=== PATIENT | female | born 1965 | race Caucasian/White ===

== ENCOUNTER 2020-10-07 21:14 | Emergency (ER) | payer MEDICAID ==
[~2020-10-07] VITALS: Ht 154.9 cm; Wt 54.4 kg
[2020-10-07 21:25] VITALS: BP 119/71
[2020-10-07 21:57] LABS: BASOPHILS % (AUTO) 0.3 % (0.0-2.0); EOSINOPHILS # (AUTO) 0.2 K/uL (0-0.4); EOSINOPHILS % (AUTO) 2.2 % (0.0-4.0); HEMATOCRIT 37.8 % (36-48); HEMOGLOBIN 12.5 g/dL (12.0-16.0); LYMPHOCYTES # (AUTO) 1.3 K/uL (2.5-16.5); MEAN CORPUSCULAR HEMOGLOBIN 29 pg (27-31); MEAN CORPUSCULAR HGB CONC 33 g/dL (33-37); MEAN CORPUSCULAR VOLUME 88.6 fL (80-94); MONOCYTES # (AUTO) 0.5 K/uL (0.8-1.0); MONOCYTES % (AUTO) 7.4 % (1.7-9.3); NEUTROPHILS % (AUTO) 72.1 % (42.2-75.2); PLATELET COUNT (AUTO) 203 K/uL (140-450); RED BLOOD CELL COUNT(AUTO) 4.26 MIL/uL (4.20-5.40); RED CELL DISTRIBUTION WIDTH 12.7 % (11.6-13.7)
--- NOTE | 2020-10-07 22:05 | NUR ---
AMBULATED TO BED 12 FROM [facility]
[2020-10-07 22:09] LABS: ANION GAP 12.8 (8-16); CARBON DIOXIDE 28.1 mmol/L (21-32); CREATININE 0.7 mg/dL (0.6-1.3); POTASSIUM 3.9 mmol/L (3.5-5.1)
--- NOTE | 2020-10-07 22:10 | NUR ---
PT BIB SELF FOR C/O 10/10 EPIGASTRIC PAIN X 7 MONTHS. PT REPORTS THE PAIN IS SHARP AND INTERMITTENT. PT REPORTS SHE WAS SEEN AT A CLINIC X 1 MONTH AGO, WHO DIAGNOSED HER WITH A "STOMACH INFECTION." SHE WAS GIVEN ABX IN WHICH SHE COMPLETED, AND SHE IS STILL TAKING RX OMEPRAZOLE BID. PT REPORTS TAKING TYLENOL WITH MILD RELIEF. LAST BM REPORTED TODAY, NORMAL CONSISTENCY. PT ABLE TO EAT AND DRINK WITHOUT DIFFICULTY. DENIES N/V/D, FEVER, CHILLS, CP, SOB. SEE COMPLETE ASSESSMENT FOR FURTHER DETAILS. MED HX: HTN ALLERGIES: NKA
[2020-10-07 22:15] LABS: ALBUMIN 3.7 g/dL (3.4-5.0); TOTAL BILIRUBIN 0.4 mg/dL (0.0-1.0)
--- NOTE | 2020-10-07 22:19 | NUR ---
Gordo fraire in [facility] - 10/07/20 at 2258 by [email or web address] ERMD AT BEDSIDE.
--- NOTE | 2020-10-07 23:30 | NUR ---
ULTRASOUND AT BEDSIDE.
--- NOTE | 2020-10-07 23:43 | NUR ---
IMTIAZ RAY AT BEDSIDE.
[2020-10-08] MEDS ORDERED: MORPHINE SULFATE 2 MG/ML SYR IVP ONE (00:05)
[2020-10-08] MEDS ORDERED: PANTOPRAZOLE 40 MG INJ VIAL IVP ONE (00:05)
[2020-10-08] MEDS ORDERED: ONDANSETRON 4 MG/2 ML VIAL IVP ONE (00:05)
[2020-10-08] MEDS ORDERED: NACL 0.9% 1,000 ML IV ONE (00:05)
[2020-10-08] MEDS ORDERED: ACETAMINOPHEN EXTRA STRENGTH 500 MG TAB PO ONE (00:20)
[2020-10-08] MEDS ORDERED: PANT40EC PO (01:14)
--- NOTE | 2020-10-08 01:52 | NUR ---
URINE SAMPLE TAKEN TO LAB AND GIVEN TO NICOLE ESPINOSA TECH.
[2020-10-08 01:56] LABS: BILIRUBIN,URINE NEGATIVE (NEGATIVE); BLOOD, URINE NEGATIVE (NEGATIVE); LEUKOCYTE ESTERASE ,URINE 2+ (NEGATIVE); NITRITE, URINE NEGATIVE (NEGATIVE); PH,URINE 6.5 (5.0-9.0); UGLUCOSE NEGATIVE (NEGATIVE)
[2020-10-08 02:00] LABS: APPEARANCE,URINE SLIGHTLY CLOUDY (CLEAR); COLOR,URINE YELLOW (YELLOW)
[2020-10-08 02:14] LABS: RBC,URINE 0-5 /HPF (0-5); YEAST,URINE Many /HPF (None Seen)
[2020-10-08 02:45] VITALS: BP 140/75
--- NOTE | 2020-10-08 02:45 | NUR ---
Patient discharged with v/s stable. Written and verbal after care instructions given and explained. Patient alert, oriented and verbalized understanding of instructions. Ambulatory with steady gait. All questions addressed prior to discharge. ID band removed. Patient advised to follow up with PMD. Rx of PROTONIX given. Patient educated on indication of medication including possible reaction and side effects. Opportunity to ask questions provided and answered.
[2020-10-08] MEDS ORDERED: CEPH500C16 PO (09:23)
== END 2020-10-08 02:45 | disposition home or self-care (01) ==
LOC: MED 21:14
DX: K80.80 Other cholelithiasis without obstruction (principal); N39.0 Urinary tract infection, site not specified; K27.9 Peptic ulcer, site unspecified, unspecified as acute or chronic, without hemorrhage or perforation; I10 Essential (primary) hypertension; Z79.899 Other long term (current) drug therapy
CPT/HCPCS: 36415; 74176; 76705; 80053; 81001; 83690; 84484; 85025; 87086; 93005; 96361; 96374; 96375; 99285; C9113; J2405; J7030; J2270

== ENCOUNTER 2021-01-22 21:59 | Emergency (ER) | payer MEDICAID ==
[~2021-01-22] VITALS: Ht 149.9 cm; Wt 53.5 kg
[~2021-01-22 21:59] MED LIST: CEPH500C16 PO; PANT40EC PO
[2021-01-22 22:04] VITALS: BP 158/88
--- NOTE | 2021-01-22 22:07 | NUR ---
TO LOBBY AMBULATORY
--- NOTE | 2021-01-22 22:22 | NUR ---
PT AMBULATED TO BED 09.
--- NOTE | 2021-01-22 22:30 | NUR ---
PT BIBS FOR C/C ELEVATED BP AT HOME. PT REPORTS THIS MORNING SHE FELT LIGHTHEADED, AND WHEN SHE CHECKED HER BP THIS EVENING, PT STATES SYSTOLIC 180'S. PT REPORTS HX OF HTN, HOWEVER SHE DID NOT TAKE HER MEDICATION YESTERDAY EVENING RX. PT REPORTS SHE TOOK HER BP MEDICATION THIS EVENING, BP CURRENTLY NOTED 147/86. PT DENIES LIGHTHEADEDNESS, SOB, CP OR PAIN CURRENTLY. DENIES BLURRED VISION. MED HX: HTN ALLERGIES: MORPHINE
--- NOTE | 2021-01-22 22:34 | NUR ---
PLACED IN GOWN AND CONNECTED TO [employer].
--- NOTE | 2021-01-22 23:01 | NUR ---
ERMD AT BEDSIDE FOR EVAL.
--- NOTE | 2021-01-22 23:11 | NUR ---
[place], AT BEDSIDE FOR EKG.
[2021-01-22 23:34] VITALS: BP 134/79
--- NOTE | 2021-01-22 23:34 | NUR ---
Patient discharged with v/s stable. Written and verbal after care instructions given and explained. Patient verbalized understanding. Ambulatory with steady gait. All questions addressed prior to discharge. Advised to follow up with PMD.
== END 2021-01-22 23:34 | disposition home or self-care (01) ==
LOC: MED 21:59
DX: I10 Essential (primary) hypertension (principal); R42 Dizziness and giddiness; Z88.5 Allergy status to narcotic agent; Z79.899 Other long term (current) drug therapy; Z90.710 Acquired absence of both cervix and uterus
CPT/HCPCS: 93005; 99283

== ENCOUNTER 2021-04-10 20:05 | Emergency (ER) | payer MEDICAID ==
[~2021-04-10] VITALS: Ht 139.7 cm; Wt 49.9 kg
[2021-04-10 20:15] VITALS: BP 142/92
--- NOTE | 2021-04-10 20:17 | NUR ---
to lobby a/w bed ambulatory
--- NOTE | 2021-04-10 22:44 | NUR ---
PT CALLED BY DR. LYNN IN LOBBY AND OUTSIDE WITH NO ANSWER.
--- NOTE | 2021-04-10 22:58 | NUR ---
PT CALLED BY DR. LYNN IN LOBBY AND OUTSIDE WITH NO ANSWER.
--- NOTE | 2021-04-10 23:05 | NUR ---
PT CALLED IN LOBBY AND OUTSIDE FOR 3RD TIME WITH NO ANSWER. ATTEMPTED TO CALL PT ON PERSONAL PHONE WITH NO ANSWER. PATIENT LEFT WITHOUT BEING SEEN BY DR. LYNN. NO FURTHER CARE PROVIDED FOR PATIENT.
== END 2021-04-10 23:05 | disposition left against medical advice (07) ==
LOC: MED 20:05
DX: R03.0 Elevated blood-pressure reading, without diagnosis of hypertension (principal); R42 Dizziness and giddiness; Z53.21 Procedure and treatment not carried out due to patient leaving prior to being seen by health care provider

== ENCOUNTER 2021-05-18 13:14 | Emergency (ER) | payer MEDICAID ==
--- NOTE | 2021-05-18 15:00 | NUR ---
ATTEMPTED TO TRIAGE PT, NO ANSWER IN LOBBY/TENT
--- NOTE | 2021-05-18 15:20 | NUR ---
2ND ATTEMPT TO TRIAGE PT, NO ANSWER IN LOBBY/TENT.
--- NOTE | 2021-05-18 15:22 | NUR ---
PATIENT LEFT WITHOUT BEING SEEN BY DR. LAMBERT. NO FURTHER CARE PROVIDED FOR PATIENT.
== END 2021-05-18 15:22 | disposition left against medical advice (07) ==
LOC: MED 13:14
DX: Z53.21 Procedure and treatment not carried out due to patient leaving prior to being seen by health care provider (principal)

== ENCOUNTER 2021-09-04 12:53 | Emergency (ER) | payer MEDICAID ==
[~2021-09-04] VITALS: Ht 152.4 cm; Wt 48.1 kg
[2021-09-04 12:58] VITALS: BP 128/99
--- NOTE | 2021-09-04 16:37 | NUR ---
Pt taken to bed 2 ambulatory with steady gait.
[2021-09-04 17:01] LABS: BASOPHILS % (AUTO) 0.2 % (0.0-2.0); EOSINOPHILS # (AUTO) 0.1 K/uL (0-0.4); EOSINOPHILS % (AUTO) 1.6 % (0.0-4.0); HEMATOCRIT 41.3 % (36-48); HEMOGLOBIN 13.8 g/dL (12.0-16.0); LYMPHOCYTES % (AUTO) 29.4 % (20.5-51.1); MEAN CORPUSCULAR HEMOGLOBIN 30 pg (27-31); MEAN CORPUSCULAR HGB CONC 33 g/dL (33-37); MEAN CORPUSCULAR VOLUME 88.9 fL (80-94); MONOCYTES # (AUTO) 0.5 K/uL (0.8-1.0); MONOCYTES % (AUTO) 6.9 % (1.7-9.3); NEUTROPHILS # (AUTO) 4.2 K/uL (1.8-7.7); NEUTROPHILS % (AUTO) 61.9 % (42.2-75.2); PLATELET COUNT (AUTO) 199 K/uL (140-450); RED BLOOD CELL COUNT(AUTO) 4.64 MIL/uL (4.20-5.40); RED CELL DISTRIBUTION WIDTH 13.1 % (11.6-13.7); WHITE BLOOD COUNT (AUTO) 6.8 K/uL (4.8-10.8)
[2021-09-04 17:23] LABS: ANION GAP 11.5 (8-16); CARBON DIOXIDE 30.2 mmol/L (21-32); CREATININE 0.6 mg/dL (0.6-1.3); POTASSIUM 3.7 mmol/L (3.5-5.1)
[2021-09-04 17:28] LABS: ALBUMIN 4.2 g/dL (3.4-5.0); MAGNESIUM 2.2 mg/dL (1.8-2.4); PHOSPHORUS 3.8 mg/dL (2.5-4.9); TOTAL BILIRUBIN 0.4 mg/dL (0.0-1.0)
[2021-09-04] MEDS ORDERED: ACET-2619 PO (17:53)
[2021-09-04 18:11] VITALS: BP 128/99
--- NOTE | 2021-09-04 18:11 | NUR ---
Patient discharged with v/s stable. Written and verbal after care instructions given and explained. Patient alert, oriented and verbalized understanding of instructions. Ambulatory with steady gait. All questions addressed prior to discharge. ID band removed. Patient advised to follow up with PMD. Rx of ACETAMINOPEHN given. Patient educated on indication of medication including possible reaction and side effects. Opportunity to ask questions provided and answered.
== END 2021-09-04 18:11 | disposition home or self-care (01) ==
LOC: MED 12:53
DX: S00.03XA Contusion of scalp, initial encounter (principal); R55 Syncope and collapse; I10 Essential (primary) hypertension; Z79.899 Other long term (current) drug therapy; Z79.2 Long term (current) use of antibiotics; Z88.5 Allergy status to narcotic agent; W01.198A Fall on same level from slipping, tripping and stumbling with subsequent striking against other object, initial encounter; Y92.009 Unspecified place in unspecified non-institutional (private) residence as the place of occurrence of the external cause; Y93.89 Activity, other specified; Y99.8 Other external cause status
CPT/HCPCS: 36415; 70450; 80053; 83690; 83735; 84100; 85025; 93005; 99285

== ENCOUNTER 2021-09-22 23:36 | Emergency (ER) | payer MEDICAID ==
[~2021-09-22 23:36] MED LIST changes: +ACET-2619 PO
--- NOTE | 2021-09-23 00:16 | NUR ---
CALLED TO TRIAGE, NO ANSWER
--- NOTE | 2021-09-23 00:46 | NUR ---
CALLED TO TRIAGE, NO ANSWER
== END 2021-09-23 00:48 | disposition left against medical advice (07) ==
LOC: MED 23:36
DX: M79.18 Myalgia, other site (principal); Z53.21 Procedure and treatment not carried out due to patient leaving prior to being seen by health care provider

== ENCOUNTER 2021-11-16 23:45 | Emergency (ER) | payer MEDICAID ==
[~2021-11-16] VITALS: Ht 147.3 cm; Wt 48.1 kg
[2021-11-17 00:24] VITALS: BP 175/99
--- NOTE | 2021-11-17 01:08 | NUR ---
PT AMBULATED TO BED #4
--- NOTE | 2021-11-17 01:32 | NUR ---
Dr. Cheung examining patient.
--- NOTE | 2021-11-17 01:45 | NUR ---
C/O HIGH BP X TODAY. NO OTHER COMPLAINTS PMHx: HTN (discontinue medication 10 days ago)
[2021-11-17 02:25] VITALS: BP 140/82
== END 2021-11-17 02:25 | disposition home or self-care (01) ==
LOC: MED 23:45
DX: I10 Essential (primary) hypertension (principal); Z88.5 Allergy status to narcotic agent
CPT/HCPCS: 99281

== ENCOUNTER 2022-09-18 21:19 | Emergency (ER) | payer MEDICAID ==
[~2022-09-18] VITALS: Ht 147.3 cm; Wt 50.3 kg
[2022-09-18 21:28] VITALS: BP 152/95
[2022-09-18 22:14] LABS: APPEARANCE,URINE CLEAR (CLEAR); BILIRUBIN,URINE NEGATIVE (NEGATIVE); BLOOD, URINE TRACE-I (NEGATIVE); COLOR,URINE YELLOW (YELLOW); LEUKOCYTE ESTERASE ,URINE 1+ (NEGATIVE); NITRITE, URINE NEGATIVE (NEGATIVE); UGLUCOSE NEGATIVE (NEGATIVE)
[2022-09-18 22:35] LABS: RBC,URINE 0-5 /HPF (0-5)
--- NOTE | 2022-09-18 23:24 | NUR ---
PATIENT LEFT WITHOUT BEING SEEN BY DR. Lizarraga. NO FURTHER CARE PROVIDED FOR PATIENT.
--- NOTE | 2022-09-18 23:24 | NUR ---
Called no show in lobby and outside.
== END 2022-09-18 23:24 | disposition left against medical advice (07) ==
LOC: MED 21:19
DX: R10.13 Epigastric pain (principal); Z53.21 Procedure and treatment not carried out due to patient leaving prior to being seen by health care provider
CPT/HCPCS: 81001; 87086; 99281